=== PATIENT | female | born 1980 | race Caucasian/White ===

== ENCOUNTER 2022-04-08 12:48 | Emergency (ER) | payer OTHER, SELFPAY ==
[2022-04-08 12:59] VITALS: BP 131/89; PULSE 92; RESP 16; TEMP 36.1; O2SAT 99
--- NOTE | 2022-04-08 13:11 | ED.GENADULT ---
HPI - General Adult General Chief complaint: Unspecified Stated complaint: Facial Swelling Time Seen by Provider: 04/08/22 13:11 Source: patient Mode of arrival: ambulatory Limitations: no limitations History of Present Illness HPI narrative: 41-year-old female presented for complaint of soreness to right side of her neck with a bump under the skin. She states she noticed it while she was eating last evening. Pain radiates to the right ear. Denies headache, tinnitus, sore throat, sinus congestion or persistent ear pain, dental pain, fevers or body aches She has taken ibuprofen for the pain last night. She denies sick contacts. No other nodules reported. Related Data Allergies Allergy/AdvReac Type Severity Reaction Status Date / Time No Known Allergies Allergy Verified 04/08/22 13:00 Review of Systems Review of Systems: CONSTITUTIONAL: Denies body aches, fever, chills, or sweats. EYES: Denies visual changes, redness, or discharge. ENT: Denies rhinorrhea, congestion, sore throat, or otalgia. CARDIOVASCULAR: Denies chest pain, palpitations, or edema. RESPIRATORY: Denies cough or dyspnea. SKIN: Right neck subcutaneous nodule MUSCULOSKELETAL: Denies back pain, joint pain, or myalgia. NEUROLOGIC: Denies headache, numbness, tingling, or weakness. All systems reviewed & are unremarkable except as noted in HPI and below PMFSH Family History Family History Father Hypertension Family history of elevated blood lipids Mother Hypertension Family history of cardiac disorder Other Family history of malignant neoplasm Social History Social History Smoking status: Never smoker Alcohol intake: never Comments At time of signature, I have reviewed and agree with nursing past medical, surgical, social and family history unless otherwise noted. Please see nursing chart for further information. There is no relevant family history pertinent to the presenting complaint Exam Narrative: GENERAL: Well-appearing, well-nourished, and in no acute distress. HEAD: Normocephalic, atraumatic. EYES: EOMI. No redness or drainage. Conjunctivae normal. ENT: Mucous membranes pink and moist. No rhinorrhea. TMs normal bilaterally. Throat normal. Uvula midline. NECK: Normal AROM. Supple. Right anterior cervical lymph node enlarged, tender with palpation CHEST: No respiratory distress. Clear to auscultation. HEART: Regular rate and rhythm. No murmur appreciated. Normal peripheral pulses. SKIN: Warm, dry, no rash. Capillary refill normal. Normal skin turgor. NEURO: No focal deficits. Alert and oriented x3. Gait steady. Course Course Emergency Course: Patient is aware of diagnosis, understands and agrees to treatment plan. Anticipatory guidance given. Patient agrees to follow-up as directed and is aware of reasons to seek care at the emergency department. Portions of this record may have been created with voice recognition software Level of Care: Express Care Visit Vital Signs Vital signs: Vital Signs Temperature 97.0 F L 04/08/22 12:59 Pulse Rate 92 04/08/22 12:59 Respiratory Rate 16 04/08/22 12:59 Blood Pressure 131/89 04/08/22 12:59 Pulse Oximetry 99 04/08/22 12:59 Oxygen Delivery Room Air 04/08/22 12:59 Temperature 97.0 F L 04/08/22 12:59 Pulse Rate 92 04/08/22 12:59 Respiratory Rate 16 04/08/22 12:59 Blood Pressure 131/89 04/08/22 12:59 Pulse Oximetry 99 04/08/22 12:59 Oxygen Delivery Room Air 04/08/22 12:59 Medical Decision Making MDM Narrative Medical decision making narrative: Enlarged lymph node to right anterior cervical area. No apparent cause for the lymphadenopathy on physical exam. She is advised her body is likely fighting an infection, could be viral. She is advised that she does not have a PCP that she can take the prescribed antibiotic [facility]
== END 2022-04-08 13:30 | disposition home or self-care (01) ==
PROVIDERS: Emergency Provider Nurse Practitioner Family
DX: L04.0 Acute lymphadenitis of face, head and neck (principal)
CPT/HCPCS: 99213; G0463

== ENCOUNTER 2022-08-08 16:00 | Emergency (ER) | payer OTHER, SELFPAY ==
[2022-08-08 16:12] VITALS: BP 113/67; PULSE 84; RESP 16; TEMP 35.7; O2SAT 100
--- NOTE | 2022-08-08 16:17 | ED.EAR ---
HPI - Ear Problem General Chief complaint: Ear Stated complaint: ear pain Time Seen by Provider: 08/08/22 16:24 Source: patient and RN notes reviewed Mode of arrival: ambulatory Limitations: no limitations History of Present Illness HPI Narrative: 41-year-old female presents concern for acute left ear pain that started overnight. Reports shooting type pain. She denies drainage from the ear. She reports she had some allergy issues over the weekend [place]. She denies fever, hearing changes. MD Complaint: ear pain Related Data Allergies Allergy/AdvReac Type Severity Reaction Status Date / Time No Known Allergies Allergy Verified 08/08/22 16:20 Review of Systems Review of Systems: CONSTITUTIONAL: Denies malaise, chills, sweats, or fever. EYES: Denies visual changes, redness, or discharge. ENT: Reports mild rhinorrhea, congestion. Denies sinus pain, and sore throat. Reports left ear pain CARDIOVASCULAR: Denies chest pain, palpitations, or edema. RESPIRATORY: Denies cough. Denies dyspnea. GASTROINTESTINAL: Denies abdominal pain, nausea, vomiting, diarrhea SKIN: Denies rash or itching. MUSCULOSKELETAL: Denies myalgia. NEUROLOGIC: Denies headache. All systems reviewed & are unremarkable except as noted in HPI and below PMFSH Family History Family History Father Hypertension Family history of elevated blood lipids Mother Hypertension Family history of cardiac disorder Other Family history of malignant neoplasm Social History Social History Smoking status: Never smoker Alcohol intake: never Comments At time of signature, agree with nursing past medical, surgical, social and family history. There is no relevant family history pertinent to the presenting complaint Exam Narrative: GENERAL: Well-appearing, well-nourished, and in no acute distress. HEAD: Normocephalic EYES: PERRLA, conjunctivae clear ENT: Nares clear. Mucous membranes moist. Right TM pearly boogie with dull light reflex, left TM erythematous and slightly bulging; EAC clear, no tragal tenderness. Oropharynx not erythematous without lesions. Tonsils not enlarged and without exudate, no drooling, no hoarseness, no trismus, uvula midline. NECK: Supple. No lymphadenopathy CHEST: Clear to auscultation, breath sounds equal. No wheezing, rhonchi, rales, or stridor. No respiratory distress, speaks in full sentences. HEART: Regular rate and rhythm. No murmur heard. SKIN: Warm, dry, no rash. NEURO: Alert and oriented x3. PSYCH: Normal mood and affect Course Course Emergency Course: Patient is aware of diagnosis, understands and agrees to treatment plan. Anticipatory guidance given. Patient agrees to follow-up as directed and is aware of reasons to seek care at the emergency department. Portions of this record may have been created with voice recognition software Level of Care: Express Care Visit Vital Signs Vital signs: Vital Signs Temperature 96.3 F L 08/08/22 16:12 Pulse Rate 84 08/08/22 16:12 Respiratory Rate 16 08/08/22 16:12 Blood Pressure 113/67 08/08/22 16:12 Pulse Oximetry 100 08/08/22 16:12 Oxygen Delivery Room Air 08/08/22 16:12 Temperature 96.3 F L 08/08/22 16:12 Pulse Rate 84 08/08/22 16:12 Respiratory Rate 16 08/08/22 16:12 Blood Pressure 113/67 08/08/22 16:12 Pulse Oximetry 100 08/08/22 16:12 Oxygen Delivery Room Air 08/08/22 16:12 Reviewed. Medical Decision Making MDM Narrative Medical decision making narrative: Differential diagnosis considered: Jacques virus, strep pharyngitis, allergic rhinitis, upper respiratory tract infection, sinusitis, rhinosinusitis, nasopharyngitis. viral pharyngitis, otitis media, otitis externa, otitis effusion, cerumen impaction, foreign body. Exam findings show no acute concerns or changes; patient is non-toxic appearing and
== END 2022-08-08 16:38 | disposition home or self-care (01) ==
PROVIDERS: Emergency Provider Nurse Practitioner
DX: H66.92 Otitis media, unspecified, left ear (principal)
CPT/HCPCS: 99213; G0463

== ENCOUNTER 2022-11-24 01:02 | Emergency (ER) | payer OTHER, SELFPAY ==
--- NOTE | ~2022-11-24 | XR_ITS ---
XR tibia fibula RT 2V, XR ankle RT min 3V 11/24/2022 02:21 Indication: Right leg deformity after trauma Procedure: 2 views right tibia/fibula and 3 views right ankle Comparison: No prior studies for comparison. Findings: There is a spiral fracture of the proximal fibular metadiaphysis with approximately one bon e width lateral displacement. There is also approximately one half bone width ventral displacement. T here is a spiral fracture of the distal tibial diaphysis extending into the metaphysis. There is late ral and posterior displacement with mild dorsal angulation. Ankle mortise intact. Small degenerative calcaneal enthesophytes. Talar dome within normal limits. No significant soft tissue abnormality. Impression: 1: Displaced proximal right fibular metadiaphyseal and distal tibial diaphyseal spiral fractures. Reviewed, dictated and finalized at location [facility]. [facility] [employer] Impression: 1: Displaced proximal right fibular metadiaphyseal and distal tibial diaphyseal spiral fractures. Impression: 1: Displaced proximal right fibular metadiaphyseal and distal tibial diaphyseal spiral fractures.
[2022-11-24 01:01] VITALS: BP 147/94; PULSE 104; RESP 13; O2SAT 100
--- NOTE | 2022-11-24 01:21 | ED.GENADULT ---
HPI - General Adult General Chief complaint: Fall Stated complaint: fall, leg deformity History of Present Illness HPI narrative: This is a 42-year-old female presenting ED with chief complaint of leg pain. Patient was drinking alcohol today. When she went home she tripped and then had severe pain in her lower extremity. She notes deformity. Patient has sensation in the foot distal to the injury. She denies any other injuries. She denies head trauma/loc. Related Data Allergies Allergy/AdvReac Type Severity Reaction Status Date / Time No Known Allergies Allergy Verified 08/08/22 16:20 [facility] Family History Family History Father Hypertension Family history of elevated blood lipids Mother Hypertension Family history of cardiac disorder Other Family history of malignant neoplasm Social History Social History (Updated 11/24/22 @ 01:23 by Yo Leary MD) Social History: patient uses alcohol frequently but denies withdrawal symptoms, denies tobacco or drug use. Smoking status: Never smoker Alcohol intake: never Exam Narrative: APPEARANCE: No apparent distress. Head: atraumatic. EYES: EOMI, NOSE: Atraumatic NECK: Trachea midline RESPIRATORY: No increased rate of breathing CARDIOVASCULAR: RRR, ABDOMINAL: Non-distended MUSCULOSKELETAl: Deformity to the mid tibia. Crepitus. Internal rotation of the foot. Pulses are +2 in the PT and DP, No evidence of common peroneal injury, Cap refills less than 2 seconds. NEURO: Alert. Moving 4/4 extremities SKIN:: Warm, dry. Normal color PSYCHIATRIC: Normal affect Course Vital Signs Vital signs: Vital Signs Pulse Rate 104 H 11/24/22 01:01 Respiratory Rate 13 11/24/22 01:01 Blood Pressure 147/94 H 11/24/22 01:01 Pulse Oximetry 100 11/24/22 01:01 Oxygen Delivery Room Air 11/24/22 01:01 Pulse Rate 104 H 11/24/22 01:01 Respiratory Rate 13 11/24/22 01:01 Blood Pressure 147/94 H 11/24/22 01:01 Pulse Oximetry 100 11/24/22 01:01 Oxygen Delivery Room Air 11/24/22 01:01 Medical Decision Making [facility] Narrative Medical decision making narrative: -Presentation: 42-year-old female presenting with deformity of right lower extremity -DDX includes but is not limited to: tib-fib fracture, by mouth/dry mouth fracture -Co-morbidities complicating care: acute alcohol intoxication -Social determinants of health: 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 -External Chart Review: None -Hx from independent Sources: EMS -Discussion of Management/Consultants: Dr. Chorpa, [facility] transfer line, Dr. Bentley ED @ [facility] -Independent interpretation of studies: Alcohol level was elevated at 182. The rest of the lab work was within normal limits. X-ray of the lower extremity revealed midshaft tibia fracture with 1 cm displacement and proximal fibula fracture. this was discussed with the orthopedic surgeon on-call Dr. Chopra who recommended [place]. Dx tests considered but not ordered: none -Procedures: after the patient received her x-rays she complained of numbness and coldness to her foot. My evaluation she has lost pulses to the foot. A reduction was performed and she regained pulses in the PT and DP distribution. She was then placed in a long posterior splint with stirrups. Neurovascularly intact after procedure. -Interventions: [place] 5 mg p.o. 0.5 mg Dilaudid -Shared decision making / Disposition: [facility]. She is in agreement. Patient be transferred to [facility] for orthopedic evaluation. -RX Vital Signs Vital Signs: Vital Signs Pulse Rate 104 H 11/24/22 01:01 Respiratory Rate 13 11/24/22 01:01 Blood Pressure 147/94 H 11/24/22 01:01 Pulse Oximetry 100 11/24/22 01:01 Oxygen Delivery Room Air 11/24/22 01:01 Pulse Rate 104 H
[2022-11-24] MEDS: HYDROcodone/acetaminophen (*CRX) 5-325 MG TABLET 1 TAB PO (01:48)
[2022-11-24] MEDS: SODIUM CHLORIDE 0.9% IV 1,000 ML 999 ML IV CONT (01:48)
[2022-11-24 02:35] LABS: Basophils Percent Auto 0.5 % (0.2-1.2); Eosinophils Absolute Auto 0.1 K/mm3 (0-0.3); Eosinophils Percent Auto 1.4 % (0-4.4); Hematocrit 37.8 % (37.0-47.0); Immature Granulocyte Absolute 0.02 K/mm3 (0.00-0.031); Immature Granulocyte Percent A 0.5 % (0-0.5); Lymphocytes Absolute Auto 1.02 K/mm3 (0.9-3.2); Lymphocytes Percent Auto 24.1 % (18.3-44.2); Mean Corpuscular HGB Conc 34.4 g/dl (32-36); Mean Corpuscular Hemoglobin 32.9 pg (26-34); Mean Corpuscular Volume 95.7 fl (80-100); Mean Platelet Volume 9.3 fl (7.4-10.4); Monocytes Absolute Auto 0.3 K/mm3 (0.1-0.6); Neutrophils Absolute Auto 2.8 K/mm3 (1.3-6.7); Neutrophils Percent Auto 65.5 % (45.5-73.1); Platelet Count Result 188 k/mm3 (150-375); Red Blood Count 3.95 M/mm3 (4.2-5.4); Red Cell Distribution Width 12.9 % (11.5-14.5); White Blood Count 4.2 K/mm3 (4.5-10.0)
[2022-11-24 02:42] LABS: Magnesium 1.7 mg/dL (1.6-2.3)
[2022-11-24 02:44] LABS: Anion Gap 10 mmol/L (8-16); Blood Urea Nitrogen 12 mg/dL (7-17); Calcium 8.6 mg/dL (8.4-10.2); Carbon Dioxide 24 mmol/L (22-30); Chloride 100 mmol/L (98-107); Estimated CRCL calculation 106 ml/min; Estimated Glomerular Filt Rate > 60; Glucose 108 mg/dL (65-110); Potassium 3.4 mmol/L (3.4-5.0); Sodium 134 mmol/L (137-145)
[2022-11-24 02:45] LABS: Ethanol 182 mg/dL (<10)
[2022-11-24] MEDS: HYDROmorphone HCL INJ (*CRX) 1 MG/ML SYR 0.5 MG IV PUSH (02:46)
[2022-11-24 02:47] LABS: Prothrombin Time 12.6 Seconds (11.1-14.7)
[2022-11-24 02:48] LABS: Partial Thromboplastin Time 28.3 SECONDS (22.3-36.8)
[2022-11-24 03:10] LABS: Influenza A QL RT-PCR Negative (Negative); Influenza B QL RT-PCR Negative (Negative); RSV RNA, RT-PCR Negative (Negative); SARS-CoV-2 RNA PCR Negative
[2022-11-24 04:18] VITALS: PULSE 100; RESP 14; O2SAT 98
== END 2022-11-24 04:21 | disposition short-term general hospital (02) ==
PROVIDERS: Emergency Provider Emergency Medicine
DX: S82.441A Displaced spiral fracture of shaft of right fibula, initial encounter for closed fracture (principal); S82.241A Displaced spiral fracture of shaft of right tibia, initial encounter for closed fracture; F10.129 Alcohol abuse with intoxication, unspecified; Y90.6 Blood alcohol level of 120-199 mg/100 ml; Z20.822 Contact with and (suspected) exposure to COVID-19
CPT/HCPCS: 27752; 27781; 36415; 73590; 73610; 80048; 80307; 83735; 85025; 85610; 85730; 86850; 86900; 86901; 87637; 96361; 96374; 99285; A9270; J1170; J7030

== ENCOUNTER 2024-03-09 16:50 | Emergency (ER) | payer BC, MEDICAID, SELFPAY ==
[2024-03-09 17:03] VITALS: BP 140/91; PULSE 83; RESP 16; TEMP 36.5; O2SAT 99
--- NOTE | 2024-03-09 17:23 | ED.URI ---
HPI - URI/Sore Throat General Chief Complaint: Unspecified Stated Complaint: face swollen,ear pain,pain when swallowing Time Seen by Provider: 03/09/24 17:23 Source: patient, RN notes reviewed and old records reviewed Mode of arrival: ambulatory Limitations: no limitations History of Present Illness HPI Narrative: 43-year-old female presents to the [facility] with complaints of right ear pain, pain with swallowing but denies throat pain, reports facial swelling yesterday, better today Patient denies any fevers. No treatment prior to arrival. Does use Q-tips in the ears. Related Data Allergies Allergy/AdvReac Type Severity Reaction Status Date / Time No Known Allergies Allergy Verified 03/09/24 17:13 Review of Systems Review of Systems: All systems reviewed & are unremarkable except as noted in HPI and below Constitutional: Constitutional: Reports no additional constitutional complaints Eyes: Eyes: Reports no additional eye complaints ENT: Reports as per HPI Cardiovascular: Cardiovascular: Reports no additional cardiovascular complaints, Denies chest pain and Denies dyspnea Respiratory: Respiratory: Reports no additional respiratory complaints, Denies chest congestion, Denies cough and Denies dyspnea Gastrointestinal: Gastrointestinal: Reports no additional gastrointestinal complaints, Denies abdominal pain, Denies nausea and Denies vomiting Musculoskeletal: Musculoskeletal: Reports no additional musculoskeletal complaints Integumentary/Breasts: Skin/Breast: Reports system reviewed and no additional complaints, except as docu Neurologic: Reports system reviewed and no additional complaints, except as documented Psychiatric: Psychiatric: Reports no additional psychiatric complaints Allergic/Immunologic: Allergic/Immunologic: Reports no additional allergic/immunologic complaints PMFSH Family History Family History Father Hypertension Family history of elevated blood lipids Mother Hypertension Family history of cardiac disorder Other Family history of malignant neoplasm Social History Social History Social History: patient uses alcohol frequently but denies withdrawal symptoms, denies tobacco or drug use. Smoking status: Never smoker Alcohol intake: never Comments At the time of my signature, I reviewed and agree with the nursing past medical, surgical, social, and family history. There is no relevant family history pertinent to the patient complaint. Exam Const: General: cooperative, healthy appearing, comfortable, no acute distress, well developed, alert and well nourished Nutritional Appearance: well nourished Orientation/consciousness: patient oriented x3 Limitations: no limitations HENMT: Head: normal to inspection Ears: hearing grossly normal bilaterally, external ears normal, TM's normal bilaterally, mastoids normal, no periauricular adenopathy and Abnormal EAC present erythema on the right and EAC tenderness on the right; no edema and no otic discharge Face/Nose/Sinus: Normal external nose present, Normal nares present, Normal nasal mucous membranes and turbinates present, normal facial exam, sinuses nontender and face symmetric Face and sinus: normal facial exam and face symmetric Mouth: Yes Normal oral and palatal mucosa present, Yes lip normal and Yes moist mucous membranes Throat: posterior oropharynx normal, tonsils normal, uvula midline and postnasal drainage Eyes: General: appearance normal, both eyes and all related structures Alignment and Position: alignment normal Periorbital: periorbital findings normal Pupils: Equal, round and reactive pupils present EOM: EOMs intact bilaterally Neck: Neck: normal visual inspection, full ROM, no meningeal signs, trachea midline and lymphadenopathy (Right submandibular mild inflammation) Chest: Chest palpation & inspection: normal insp
== END 2024-03-09 17:39 | disposition home or self-care (01) ==
PROVIDERS: Emergency Provider Nurse Practitioner
DX: S00.411A Abrasion of right ear, initial encounter (principal); X58.XXXA Exposure to other specified factors, initial encounter; R59.1 Generalized enlarged lymph nodes
CPT/HCPCS: 99213; G0463

== ENCOUNTER 2025-07-13 16:29 | Emergency (ER) | payer BC, SELFPAY ==
--- NOTE | 2025-07-13 16:34 | ED.EAR ---
HPI - Ear Problem General Stated complaint: Right Ear Irritation Related Data Home Medications ?Medication ?Instructions ?Recorded ?Confirmed ?Last Taken ?Type venlafaxine 150 mg mg PO 07/13/25 Unknown History capsule,extended release 24 hr Allergies Allergy/AdvReac Type Severity Reaction Status Date / Time No Known Allergies Allergy Verified 07/13/25 16:33 [facility] Past Medical History Medical History (Updated 01/27/25 @ 13:18 by Crispin Martines, DO) Anxiety Family History Family History Father Hypertension Family history of elevated blood lipids Mother Hypertension Family history of cardiac disorder Other Family history of malignant neoplasm Social History Social History Social History: patient uses alcohol frequently but denies withdrawal symptoms, denies tobacco or drug use. Smoking status: Never smoker Alcohol intake: never Spiritual care concerns: No Discharge Plan Discharge Patient Language: Armenian Prescriptions: No Action [id number] 3.5-10,000-1 mg/mL-unit/mL-% drops,suspension 4 drp RIGHT EAR Q6H 5 Days Qty: 10 0RF buspirone 7.5 mg tablet 7.5 mg PO DAILY venlafaxine besylate PO Follow-up/Referrals: Aleta,Randell Espinoza MD [Primary Care Provider, [facility]]
--- NOTE | 2025-07-13 17:03 | PC.NURSE ---
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 Pt not triaged. [employer]
== END 2025-07-13 17:03 | disposition left against medical advice (07) ==
PROVIDERS: PCP Emergency Medicine
DX: Z53.21 Procedure and treatment not carried out due to patient leaving prior to being seen by health care provider (principal)
CPT/HCPCS: 99199